=== PATIENT | male | born 1995 | race Caucasian/White ===

== ENCOUNTER 2018-04-07 08:23 | Emergency (ER) | payer MEDICAID ==
[2018-04-07 08:26] VITALS: BMI 20.7
[2018-04-07 08:27] VITALS: O2SAT 98
[2018-04-07] MEDS ORDERED: Lidocaine 1% Inj (20ml) IJ ONE (08:30)
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
--- NOTE | 2018-04-07 09:10 | RAD ---
PROCEDURE: Right Hand Radiographs. HISTORY: trauma COMPARISON: None. FINDINGS: BONES: No acute fracture or destructive bony lesion identified. JOINTS: No subluxation or dislocation. No osteoarthritic changes. SOFT TISSUES: Prominent soft tissue edema seen predominately at the dorsal hand and proximal digit soft tissues potentially extending into the palmar hand soft tissues as well. No retained radiodense foreign body. Trace emphysematous soft tissue changes are question overlying the distal metacarpal portion of the subcutaneous soft tissue. OTHER FINDINGS: None. IMPRESSION: Extensive right hand soft tissue edema seen appreciated predominately dorsal in location without retained radiodense foreign body identified. Trace emphysematous changes are related. No acute fracture or dislocation.
[2018-04-07 09:15] VITALS: BP 112/76; PULSE 78; RESP 19; TEMP 97.6
== END 2018-04-07 09:15 | disposition home or self-care (01) ==
LOC: H.ER 08:23
DX: S61.411A Laceration without foreign body of right hand, initial encounter (principal); W22.09XA Striking against other stationary object, initial encounter; Y93.55 Activity, bike riding; F17.200 Nicotine dependence, unspecified, uncomplicated; J45.909 Unspecified asthma, uncomplicated; F90.9 Attention-deficit hyperactivity disorder, unspecified type